=== PATIENT | female | born 1990 | race Caucasian/White ===

== ENCOUNTER → 2017-09-28 | Outpatient (CLI) | payer BC | END | disposition home or self-care (01) | LOC: LABWHC1 17:12 | PROVIDERS: ATTEND Otolaryngology | DX: E07.9 Disorder of thyroid, unspecified (principal) | CPT/HCPCS: 36415; 84439; 84443; 86376 ==

== ENCOUNTER → 2019-01-25 | Outpatient (CLI) | payer OTHER ==
[2019-01-25 14:42] LABS: HCT 40.7 % (34.0-46.0); HGB 13.2 gm/dL (11.4-16.0); MCH 28.4 pg (25.0-35.0); MCHC 32.4 g/dL (31.0-37.0); MCV 87.6 fL (80.0-100.0); Mean Platelet Volume 8.1; Platelet Count 211 k/uL (150-450); RBC 4.65 m/uL (3.80-5.40); RDW 13.6 % (11.5-15.5); WBC 8.9 k/uL (3.8-10.6)
--- NOTE | 2019-01-25 14:42 | US ---
EXAMINATION TYPE: Transabdominal DATE OF EXAM: 01/25/2019 2:06 PM COMPARISON: NONE CLINICAL HISTORY: Z36 CONFIRM DATES. Confirm Dates, pt has no complaints at this time EXAM PERFORMED: Transabdominal (TA) EXAM MEASUREMENTS: GESTATIONAL AGE / DATING Physician Established: (11 weeks/5 days) EDC: 08/11/2019 Dates by LMP: Unknown Dates by First Scan: No Prior Dates by Current Scan for: (12 weeks/2 days) EDC: 08/07/2019 MATERNAL ANATOMY Uterus: 14.3 x 7.2 x 9.0 cm Right Ovary: 2.7 x 1.7 x 2.1 cm Left Ovary: 2.2 x 1.7 x 2.2 cm Post CDS / Adnexa: wnl Presence of free fluid: No Presence of corpus luteal cyst: Left Ovary= 1.4 x 1.3 x 1.5 cm Presence of subchorionic bleed: No GESTATION / SURVEY CRL: 5.7 cm (12 weeks/2 days) MSD: wnl Heart Rate: 172 bpm Rhythm: Normal IUP: Viable IUP Nuchal Translucency 10-14wks (normal less than 3mm): 2mm Single, Live IUP/ No abnormality visualized at this time IMPRESSION: Single live intrauterine with a sonographic age of 12 weeks and 2 days and estimated date o f delivery of 08/07/2019, concordant with the physician established dates.
[2019-01-25 14:55] LABS: Glucose 116 mg/dL (74-99)
[2019-01-25 20:49] LABS: HIV 1 AB Non-Reactive (Non-Reactive); HIV AB P24 Non-Reactive (Non-Reactive); HIV P24 AG Non-Reactive (Non-Reactive)
== END | disposition home or self-care (01) ==
LOC: RADUSWWP 13:43
PROVIDERS: ATTEND Obstetrics & Gynecology
DX: Z36.89 Encounter for other specified antenatal screening (principal)
CPT/HCPCS: 76801; 76813; 82565; 82947; 85027; 86762; 86780; 86850; 86900; 86901; 87340; 87390

== ENCOUNTER → 2019-05-10 | Outpatient (CLI) | payer OTHER ==
[2019-05-10 11:58] LABS: Glucose 3 Hour, Gest 62 mg/dL
== END | disposition home or self-care (01) ==
LOC: LABWHC1 07:52
PROVIDERS: ATTEND Obstetrics & Gynecology
DX: O99.810 Abnormal glucose complicating pregnancy (principal)
CPT/HCPCS: 36415; 82951; 82952

== ENCOUNTER 2019-07-05 11:12 | Outpatient (CLI) | payer OTHER ==
[2019-07-05 12:01] LABS: Basophils % (A) 0 %; Eosinophils # (A) 0.1 k/uL (0-0.7); Eosinophils % (A) 1 %; HGB 12.8 gm/dL (11.4-16.0); Lymphocytes # (A) 2.1 k/uL (1.0-4.8); Lymphocytes % (A) 15 %; MCH 28.9 pg (25.0-35.0); MCHC 32.8 g/dL (31.0-37.0); Mean Platelet Volume 7.9; Monocytes # (A) 0.6 k/uL (0-1.0); Monocytes % (A) 4 %; Neutrophils # (A) 10.8 k/uL (1.3-7.7); Neutrophils % (A) 78 %; Platelet Count 268 k/uL (150-450); RBC 4.43 m/uL (3.80-5.40); RDW 14.6 % (11.5-15.5); WBC 13.7 k/uL (3.8-10.6)
[2019-07-05 12:09] LABS: Appearance,Urine Clear (Clear); Bacteria,Urine Many /hpf; Bilirubin,Urine Negative (Negative); Blood,Urine Small (Negative); Color,Urine Light Yellow; Glucose,Urine (UA) Negative (Negative); Ketones,Urine Negative (Negative); Leukocyte Esterase,Urine Negative (Negative); Mucus,Urine Rare /hpf; Nitrite,Urine Negative (Negative); PH, Urine 6.5 (5.0-8.0); Protein,Urine Negative (Negative); RBC,Urine 3 /hpf (0-5); Specific Gravity,Urine 1.004 (1.001-1.035); Squamous Epithelial Cell,Urine <1 /hpf (0-4); Urobilinogen,Urine <2.0 mg/dL (<2.0); WBC,Urine 2 /hpf (0-5)
[2019-07-05 12:18] LABS: ALT 17 U/L (9-52); AST 17 U/L (14-36); African American GFR (CKD) >90 (>60 ml/min/1.73 sqM); Blood Urea Nitrogen 5 mg/dL (7-17); LDH 369 U/L (313-618); Uric Acid 6.4 mg/dL (3.7-7.4)
[2019-07-05 14:01] VITALS: BP 125/87; PULSE 70; RESP 14; TEMP 93.7
--- NOTE | 2019-07-05 19:51 | P.MSEPDOC ---
Presenting Problems - Arrival Data Date of Arrival on Unit: 07/05/19 Time of Arrival on Unit: 11:13 Mode of Transport: Ambulatory - Complaint OB-Reason for Admission/Chief Complaint: PIH Comment: pih work up. sent from office Medical History - Information : 1 Para: 0 Term: 0 : 0 Abortions: Spontaneous or Elective: 0 Number of Living Children: 0 - Gestational Age Gestational Age by KARUNA (wks/days): 34 Weeks and 5 Days - History Complications: Chronic HTN Review of Systems - Review of Systems Constitutional: No problems Breast: No problems ENT: No problems Cardiovascular: No problems Respiratory: No problems Gastrointestinal: No problems Genitourinary: No problems Musculoskeletal: No problems Neurological: No problems Skin: No problems Vital Signs - Temperature Temperature: 93.7 F Temperature Source: Temporal Artery Scan - Pulse Right Brachial Pulse Rate: 70 Pulse Assessment Method: Automatic Cuff - Respirations Respiratory Rate: 14 Oxygen Delivery Method: Room Air - Blood Pressure Right Arm Blood Pressure: 125/87 Blood Pressure Mean: 99 Blood Pressure Source: Automatic Cuff Medical Screen Scoring (Pre) - Cervical Exam Dilation: Exam Deferred - Uterine Contractions Frequency: N/A - Maternal Vital Signs Maternal Temperature: N/A Signs of Preeclampsia: N/A Maternal Respirations: N/A - Maternal Trauma Maternal Trauma: N/A - Assessment - Baby A Baseline FHR: 145 Heart Rate - NICHD Category: Category I (Normal) = 0 - Total Score - Baby A Total Score - Baby A: 0 - Total Score - Baby B Total Score - Baby B: 0 - Total Score - Baby C Total Score - Baby C: 0 - Level of Risk - Baby A Level of Risk - Baby A: Low (0-5) - Level of Risk - Baby B Level of Risk - Baby B: Low (0-5) - Level of Risk - Baby C Level of Risk - Baby C: Low (0-5) Physician Notification (Pre) - Physician Notified Physician Notified Date: 07/05/19 Physician Notified Time: 11:13 Physician/Practitioner Notifed:: trveor Spoke With: trevor New Order Received: Yes - Notification Comment Comment: sent from office for pih workup. trevor contacted [facility] for consults, pt will be monitored weekly with nst, blood work and bps, pt may be sent home, follow up on thursday in office Disposition - Disposition OB Disposition: Discharge to home Discharge Date: 07/05/19 Discharge Time: 13:28 I agree with the RN Medical Screening Exam: Yes Risk & Benefit of care provided described in d/c instruction: Yes Diagnosis: GESTATIONAL HTN W/O SIGNIFICANT PROTEINURIA, THIRD TRIMESTER (Patient's blood pressures were mildly elevated in the office and therefore was sent to labor and delivery for evaluation of preeclampsia. Blood pressures here completely normal and lab work was fine except for elevation of her protein to creatinine ratio 0.54. heart tones are reactive. I did contact Dr. Camarena with maternal- medicine and he recommended to continue to watch her closely as an outpatient and repeat her blood work in 1 week. She'll return to my office on Thursday for another nonstress test and blood pressure check. We did discuss in detail the signs and symptoms of preeclampsia and indications to recur. Dr. Sosa did recommend delivery at 37 weeks which we already planned on doing. Patient is therefore discharged home follow up with me on Thursday)
== END 2019-07-05 13:28 | disposition home or self-care (01) ==
LOC: FBPOP 11:12
PROVIDERS: ATTEND Obstetrics & Gynecology
DX: O13.3 Gestational [pregnancy-induced] hypertension without significant proteinuria, third trimester (principal); Z3A.34 34 weeks gestation of pregnancy
CPT/HCPCS: 59025; 82570; 84156; 82565; 83615; 84450; 84460; 84520; 84550; 85025; 81001; G0463; 99215

== ENCOUNTER 2019-07-13 22:05 | Outpatient (CLI) | payer OTHER ==
[2019-07-13 22:39] LABS: Appearance,Urine Clear (Clear); Bacteria,Urine Few /hpf; Bilirubin,Urine Negative (Negative); Blood,Urine Small (Negative); Color,Urine Light Yellow; Glucose,Urine (UA) Negative (Negative); Ketones,Urine Negative (Negative); Leukocyte Esterase,Urine Negative (Negative); Mucus,Urine Rare /hpf; Nitrite,Urine Negative (Negative); Protein,Urine Negative (Negative); RBC,Urine 26 /hpf (0-5); Specific Gravity,Urine 1.012 (1.001-1.035); Squamous Epithelial Cell,Urine <1 /hpf (0-4); Urobilinogen,Urine <2.0 mg/dL (<2.0); WBC,Urine 1 /hpf (0-5)
[2019-07-13 23:59] VITALS: BP 141/84; PULSE 101; RESP 16; TEMP 97.8
--- NOTE | 2019-07-14 06:32 | P.MSEPDOC ---
Presenting Problems - Arrival Data Date of Arrival on Unit: 07/13/19 Time of Arrival on Unit: 22:07 Mode of Transport: Wheelchair - Complaint OB-Reason for Admission/Chief Complaint: Headache Medical History - Information : 1 Para: 0 Term: 0 : 0 Abortions: Spontaneous or Elective: 0 Number of Living Children: 0 - Gestational Age Gestational Age by KARUNA (wks/days): 35 Weeks and 6 Days Review of Systems - Review of Systems Constitutional: No problems Breast: No problems ENT: No problems Cardiovascular: No problems Respiratory: No problems Gastrointestinal: No problems Genitourinary: No problems Musculoskeletal: No problems Neurological: No problems Skin: No problems Vital Signs - Temperature Temperature: 97.8 F Temperature Source: Temporal Artery Scan - Pulse Right Sitting Pulse Rate: 101 Pulse Assessment Method: Automatic Cuff - Respirations Respiratory Rate: 16 Oxygen Delivery Method: Room Air - Blood Pressure Right Arm Sitting Blood Pressure: 141/84 Blood Pressure Mean: 103 Blood Pressure Source: Automatic Cuff Medical Screen Scoring (Pre) - Cervical Exam Dilation: Exam Deferred Membranes: Intact - Uterine Contractions Frequency: > 5 minutes apart = 1 Intensity: N/A - Maternal Vital Signs Maternal Temperature: N/A Maternal Blood Pressure: N/A Signs of Preeclampsia: N/A Maternal Respirations: N/A - Maternal Trauma Maternal Trauma: N/A - Assessment - Baby A Baseline FHR: 135 Heart Rate - NICHD Category: Category I (Normal) = 0 NST: Reactive - Total Score - Baby A Total Score - Baby A: 1 - Total Score - Baby B Total Score - Baby B: 1 - Total Score - Baby C Total Score - Baby C: 1 - Level of Risk - Baby A Level of Risk - Baby A: Low (0-5) - Level of Risk - Baby B Level of Risk - Baby B: Low (0-5) - Level of Risk - Baby C Level of Risk - Baby C: Low (0-5) Physician Notification (Pre) - Physician Notified Physician Notified Date: 07/13/19 Physician Notified Time: 23:02 Physician/Practitioner Notifed:: Meseret Adkins Order Received: Yes (d/c home. followup Thursday in office) Disposition - Disposition OB Disposition: Discharge to home, Written follow up instructions reviewed Discharge Date: 07/13/19 Discharge Time: 23:10 I agree with the RN Medical Screening Exam: Yes Risk & Benefit of care provided described in d/c instruction: Yes Diagnosis: GESTATIONAL HTN W/O SIGNIFICANT PROTEINURIA, THIRD TRIMESTER (Patient's been followed for gestational hypertension closely in the office. Blood work done approximately 3 days ago showed no evidence of preeclampsia. Patient called me this evening with various symptomatology and therefore was instructed come to labor and delivery for monitoring and blood pressure checks. Blood pressures remain the same without significant elevations. heart tones are reactive. I've already discussed this patient's clinical case with maternal medicine plan is delivery next week at 37 weeks with repeat blood work on Thursday. At this point there is no evidence of maternal compromise and therefore patient's felt to be stable for discharge home follow up with me on Thursday for repeat blood work blood pressure check and nonstress test. She is scheduled for delivery on . She is given strict instructions to return if she had any concerns or changes in her symptomatology.)
== END 2019-07-13 23:10 | disposition home or self-care (01) ==
LOC: FBPOP 22:05
PROVIDERS: ATTEND Obstetrics & Gynecology
DX: O13.3 Gestational [pregnancy-induced] hypertension without significant proteinuria, third trimester (principal); Z3A.35 35 weeks gestation of pregnancy
CPT/HCPCS: 59025; 81001; G0463; 99213

== ENCOUNTER 2019-07-21 05:50 | Inpatient (IN) | payer OTHER ==
[2019-07-20 11:37] VITALS: BMI 46.9
--- NOTE | 2019-07-20 12:54 | P.HPOB ---
History of Present Illness H&P Date: 07/20/19 Chief Complaint: Breech presentation, gestational hypertension This patient is a pleasant 29-year-old 1 para 0 female estimated date of confinement 08/11/2019 estimated gestational age 37 weeks who presents to labor and delivery for primary section due to persistent breech presentation and also with gestational hypertension. Patient's care is such that she saw me initially at 10 weeks and had elevated blood pressures 146/84 152/94. Patient was watched closely and did not require medication but throughout the remained having elevated blood pressures from time to time of 140s over 80s to 90s. I did consult with maternal- medicine and he recommended weekly preeclampsia labs which have been normal and delivery at 37 weeks. Since the patient has persistent breech did discuss options for delivery and she wishes to proceed with section for delivery. otherwise has been uncomplicated. Review of Systems Genitourinary: Reports Menstruation: Reports amenorrhea Past Medical History Past Medical History: Asthma Additional Past Medical History / Comment(s): Questionable chronic hypertension History of Any Multi-Drug Resistant Organisms: None Reported Past Surgical History: Adenoidectomy, Tonsillectomy Additional Past Surgical History / Comment(s): laparoscopy, D & C Past Anesthesia/Blood Transfusion Reactions: No Reported Reaction Past Psychological History: Depression Smoking Status: Never smoker Past Alcohol Use History: None Reported Past Drug Use History: None Reported - Past Family History Mother Family Medical History: Cancer Additional Family Medical History / Comment(s): lung Medications and Allergies Home Medications Medication Instructions Recorded Confirmed Type Pnv,Calcium 72/Iron/Folic Acid 1 tab PO DAILY 07/05/19 07/20/19 History [ Plus Tablet] Albuterol Inhaler [Ventolin Hfa 1 - 2 puff INHALATION RT-Q6H PRN 07/20/19 07/20/19 History Inhaler] Allergies Allergy/AdvReac Type Severity Reaction Status Date / Time cefaclor [[facility]] Allergy Unknown Verified 07/20/19 11:15 Penicillins Allergy Unknown Verified 07/20/19 11:15 Childhood codeine AdvReac Abdominal Verified 07/20/19 11:15 Pain Exam Intake and Output 07/19/19 07/20/19 07/20/19 22:59 06:59 14:59 Other: Weight 120.202 kg - OBG Physical Exam Abdomen: bowel sounds normal, no diffuse tenderness, no bruit present, no guarding noted, no hepatomegaly, no splenomegaly, no mass Vulva: both: normal Vagina: normal moisture, no discharge Cervix: no lesion (Cervix is closed in the office), no discharge Uterus: enlarged (Fundal height 40 cm) Results blood work shows she is A-, rubella immune, RPR nonreactive, hepatitis B negative, HIV is nonreactive, Glucola was abnormal with a normal three-hour gtt., group B strep was negative. Ultrasound on July 11 showed breech presentation proximally 7 pounds and weekly ultrasounds have confirmed persistent breech. Preeclampsia labs done this Thursday were normal. Patient received RhoGAM on May 20. Assessment and Plan Assessment: This is a pleasant 29-year-old 1 para 0 female 37-0/7 weeks gestation who is admitted to labor and delivery for delivery secondary to gestational hypertension and breech presentation. Plan is primary low transverse section. I've discussed this surgery and risks with the patient and risks of infection, bleeding, possible injury bowel, bladder, vessels, and/or other organs. All the patient's questions have been answered and a written consent is obtained. (1) 37 weeks gestation of Status: Acute Code(s): Z3A.37 - 37 WEEKS GESTATION OF SNOMED Code(s): 60826409 (2) Breech presentation of fetus Status: Acute Code(s): O32.1XX0 - MATERNAL CARE FOR BREECH PRESENTATION, UNSP SNOMED Code(s): 8639403 (3) Gestational hypertension Status: Acute Code(s): O13.9 - GESTATIONAL HTN W/O SIGNIFICANT PROTEINURIA, UNSP TRIMESTER SNOMED Code(s): 577175295
[2019-07-21] MEDS ORDERED: CITRIC ACID-SODIUM CITRATE 15 ML CUP PO ONE (06:06)
[2019-07-21] MEDS ORDERED: LACTATED RINGERS 1,000 ML IV ONE (06:06)
[2019-07-21] MEDS ORDERED: LACTATED RINGERS 1,000 ML IV SCH (06:06)
[2019-07-21 06:33] LABS: Basophils # (A) 0.1 k/uL (0-0.2); Basophils % (A) 1 %; Eosinophils # (A) 0.2 k/uL (0-0.7); Eosinophils % (A) 1 %; HCT 39.4 % (34.0-46.0); HGB 12.8 gm/dL (11.4-16.0); Lymphocytes # (A) 2.1 k/uL (1.0-4.8); Lymphocytes % (A) 15 %; MCH 28.8 pg (25.0-35.0); MCHC 32.4 g/dL (31.0-37.0); MCV 89.1 fL (80.0-100.0); Mean Platelet Volume 7.6; Monocytes # (A) 0.7 k/uL (0-1.0); Monocytes % (A) 5 %; Neutrophils # (A) 10.8 k/uL (1.3-7.7); Neutrophils % (A) 76 %; Platelet Count 243 k/uL (150-450); RBC 4.43 m/uL (3.80-5.40); RDW 13.9 % (11.5-15.5); WBC 14.2 k/uL (3.8-10.6)
[2019-07-21] MEDS ORDERED: CLINDAMYCIN 900 MG in DEXTROSE 5% IN WATER 50 ML IVPB ONE ×2 (07:15)
[2019-07-21] MEDS ORDERED: MORPHINE SULFATE (PF) 0.3 MG/0.3 ML SYR ONE (07:45)
[2019-07-21] MEDS ORDERED: ONDANSETRON 4 MG/2 ML VIAL ONE (07:45)
[2019-07-21] MEDS ORDERED: fentaNYL (PF) 50 MCG/ML 2 ML AMP ONE (07:45)
[2019-07-21] MEDS ORDERED: NALBUPHINE 10 MG/ML (1 ML AMP) ONE (07:45)
[2019-07-21] MEDS ORDERED: ePHEDrine SULFATE/0.9% NACL/PF 50 MG/5 ML SYRINGE IV ONE (07:45)
[2019-07-21] MEDS ORDERED: OXYTOCIN 10 UNIT/ML 1 ML VIAL ONE (07:45)
[2019-07-21] MEDS ORDERED: KETOROLAC 30 MG/ML 1 ML VIAL ONE (07:45)
[2019-07-21] MEDS ORDERED: NALOXONE 0.4 MG/ML 1 ML VIAL IV PRN ×2 (08:16→08:31)
[2019-07-21] MEDS ORDERED: NALBUPHINE 10 MG/ML (1 ML AMP) IV PRN (08:16)
[2019-07-21] MEDS ORDERED: HYDROmorphone 1 MG/ML 1 ML SYRINGE IVP PRN (08:16)
[2019-07-21] MEDS ORDERED: diphenhydrAMINE 50 MG/ML 1 ML VIAL IVP PRN (08:16)
--- NOTE | 2019-07-21 08:30 | P.OP ---
Date of Procedure: 07/21/19 Preoperative Diagnosis: #1: 37-0/7 week . #2: Breech presentation. #3: Gestational hypertension Postoperative Diagnosis: Same Procedure(s) Performed: Primary low transverse section Anesthesia: spinal Surgeon: Willian Carl Support Specialist #1: Carol Uribe Estimated Blood Loss (ml): 800 Pathology: other (Placenta) Condition: stable Disposition: floor Indications for Procedure: Please see dictated H&P for intimate details of this patient's admission. In brief summary this is a pleasant 29-year-old 1 para 0 female 37 weeks gestation with gestational hypertension known breech presentation. Patient's presenting for primary section. Patient understands this surgery and risks including risks of infection, bleeding, possible bowel, bladder, vessels, and/or other organs. Operative Findings: This is a vigorous viable male infant Apgars 9 and 9 delivery time is 0801 hrs. Infant was sacrum anterior jo breech presentation Description of Procedure: This patient is taken to the operating room where she sat up and spinal anesthetic is administered without incident. A Le catheter had already been placed to straight drain. With an adequate level of anesthesia she is laid in the supine position and has an abdominal prep and drape. Scalpels and taken a Pfannenstiel skin incision is then made. A second scalpel is taken down the fascia the fascia scored a knife. Fascial incision extended bilaterally using the Veras scissors. Fascia is then dissected off the rectus muscles. The rectus muscles are . The peritoneum was identified and entered sharply. Peritoneal incision extended superior and inferior without difficulty. Bladder blade is then placed. The bladder peritoneum was taken off the lower uterine segment. Scalpels and taken a low transverse uterine incision is then made. Using a hemostat I into the uterine cavity bluntly and there is loss of clear fluid. The is found to be in sacrum anterior jo breech presentation. Using the usual breech maneuvers the infant is delivered atraumatically through this incision. Mouth and nares are bulb suctioned. There is no evidence of a nuchal cord. The umbilical cord is doubly clamped and cut the infant is handed off to the nurses in attendance. Placenta is then manually extracted intact. Uterus is then externalized and uterine incision demarcated with Ovalle cla mps. Uterine incision is then demarcated and closed using 0 Vicryl running locked fashion 2 layers excellent hemostasis is noted. Bladder peritoneum was then reapproximated using a 3-0 Vicryl. Excess fluid is removed from the abdomen and pelvis. Uterus tubes and ovaries appear normal for term gestation. Parietal peritoneum was then closed using 0 Vicryl running fashion. Rectus muscles reapproximated using 0 Vicryl interrupted fashion. Fascial incision is then closed using PDS. Fascial incision is intact and hemostatic. Subcutaneous tissue is then closed using 3-0 Vicryl. Skin is and closed using sesar. All counts correct 3. There are no complications. Infant and mother stable in birthing room.
[2019-07-21] MEDS ORDERED: METOCLOPRAMIDE 5 MG/ML 2 ML VIAL IVP PRN (08:31)
[2019-07-21] MEDS ORDERED: Rhogam IMMUNE GLOBULIN 1,500 UNIT/1 ML IM ONE (08:31)
[2019-07-21] MEDS ORDERED: KETOROLAC 30 MG/ML 1 ML VIAL IVP PRN (08:31)
[2019-07-21] MEDS ORDERED: ONDANSETRON 4 MG/2 ML VIAL IVP PRN (08:31)
[2019-07-21] MEDS ORDERED: ZOLPIDEM 5 MG TAB PO PRN (08:31)
[2019-07-21] MEDS ORDERED: LANOLIN CREAM 5 GM TUBE TOPICAL PRN (08:31)
[2019-07-21] MEDS ORDERED: diphenhydrAMINE 25 MG CAP PO PRN (08:31)
[2019-07-21] MEDS ORDERED: OXYTOCIN 20 UNITS/1000 ML NS 1,000 ML IV SCH (08:31)
[2019-07-21] MEDS ORDERED: SIMETHICONE 80 MG CHEWABLE PO PRN (08:31)
[2019-07-21] MEDS ORDERED: ACETAMINOPHEN TAB 325 MG TAB PO PRN (08:31)
[2019-07-21] MEDS: LACTATED RINGERS 1,000 ML IV SCH ×2 (09:12→17:43)
[2019-07-21] MEDS: SENNOSIDES-DOCUSATE SODIUM 1 EACH TAB PO SCH ×2 (09:13→21:27)
[2019-07-21] MEDS: diphenhydrAMINE 50 MG/ML 1 ML VIAL IVP PRN ×2 (10:18→21:26)
[2019-07-22] MEDS: LACTATED RINGERS 1,000 ML IV SCH (00:27)
--- NOTE | 2019-07-22 06:40 | P.PNOBGPC ---
Subjective - Subjective Patient reports: Reports appetite normal, Reports voiding normally, Reports pain well controlled, Reports ambulating normally : doing well Objective - Vital Signs Latest vital signs: Vital Signs Temp Pulse Resp BP Pulse Ox 07/22/19 04:00 98.1 F 89 14 97/51 98 07/22/19 00:00 98.2 F 84 16 118/57 98 07/21/19 20:00 97.8 F 89 16 116/56 97 07/21/19 17:00 98 07/21/19 16:00 97.6 F 91 16 118/57 98 07/21/19 15:00 16 07/21/19 13:16 97 07/21/19 13:00 16 07/21/19 12:00 98.2 F 72 16 110/52 97 07/21/19 11:16 16 07/21/19 10:34 98.3 F 76 16 97 07/21/19 10:04 98.0 F 60 16 111/60 94 L 07/21/19 09:35 62 16 118/69 95 07/21/19 09:16 18 97 07/21/19 09:10 65 16 106/52 97 07/21/19 08:55 67 16 110/58 97 07/21/19 08:40 70 16 103/54 97 07/21/19 08:25 97.6 F 76 16 115/56 98 07/21/19 08:16 18 98 Intake and Output 07/21/19 07/21/19 07/22/19 14:59 22:59 06:59 Output Total 500 800 Balance -500 -800 Output: Urine 500 800 Other: # Voids 1 - Exam Lungs: bilateral: normal Chest: Normal S1, Normal S2 Extremities: Present: normal Abdomen: Present: normal appearance, soft. Absent: distention, tenderness Incision: Present: normal, dry, intact Uterus: Present: normal, firm Assessment and Plan Assessment: Post operative day #1. Patient is resting without complaints. Vital signs are stable and she is afebrile. Her incision is intact and dry. My impression this is a normal post operative course. Plan is to check a CBC, encourage ambulation, allow the patient to shower, and continue routine postoperative care. Most likely will go home tomorrow. (1) 37 weeks gestation of Current Visit: No Status: Acute Code(s): Z3A.37 - 37 WEEKS GESTATION OF SNOMED Code(s): 24549510 (2) Breech presentation of fetus Current Visit: No Status: Acute Code(s): O32.1XX0 - MATERNAL CARE FOR BREECH PRESENTATION, UNSP SNOMED Code(s): 6638965 (3) Gestational hypertension Current Visit: No Status: Acute Code(s): O13.9 - GESTATIONAL HTN W/O SIGNIFICANT PROTEINURIA, UNSP TRIMESTER SNOMED Code(s): 358283649
[2019-07-22 06:42] LABS: Basophils % (A) 0 %; Eosinophils # (A) 0.2 k/uL (0-0.7); Eosinophils % (A) 1 %; HCT 31.4 % (34.0-46.0); HGB 10.8 gm/dL (11.4-16.0); Lymphocytes # (A) 1.5 k/uL (1.0-4.8); Lymphocytes % (A) 11 %; MCH 30.3 pg (25.0-35.0); MCHC 34.4 g/dL (31.0-37.0); MCV 88.2 fL (80.0-100.0); Mean Platelet Volume 7.5; Monocytes # (A) 0.8 k/uL (0-1.0); Monocytes % (A) 6 %; Neutrophils # (A) 10.6 k/uL (1.3-7.7); Neutrophils % (A) 80 %; Platelet Count 202 k/uL (150-450); RBC 3.56 m/uL (3.80-5.40); RDW 13.9 % (11.5-15.5); WBC 13.4 k/uL (3.8-10.6)
--- NOTE | 2019-07-22 07:28 | P.PN ---
Progress Note - Text Progress Note Date: 07/22/19 post op day one status post C/S under spinal anesthesia, , intrathecal morphin given for post op analgesia , pateints doing well , there is no anesthesia related complications
[2019-07-22] MEDS: IBUPROFEN 600 MG TAB PO PRN ×3 (07:30→19:54)
[2019-07-22] MEDS: SENNOSIDES-DOCUSATE SODIUM 1 EACH TAB PO SCH ×2 (07:31→19:55)
[2019-07-22] MEDS: HYDROcodone/APAP 5-325MG 1 EACH TAB PO PRN ×3 (09:37→22:46)
[2019-07-22] MEDS ORDERED: VENLAFAXINE HCL 75 MG TAB PO STA (13:18)
[2019-07-23] MEDS: IBUPROFEN 600 MG TAB PO PRN ×3 (01:51→16:00)
[2019-07-23] MEDS: HYDROcodone/APAP 5-325MG 1 EACH TAB PO PRN ×3 (07:32→23:18)
[2019-07-23] MEDS: SENNOSIDES-DOCUSATE SODIUM 1 EACH TAB PO SCH ×2 (07:33→19:49)
[2019-07-23] MEDS ORDERED: VENLAFAXINE HCL 75 MG TAB PO SCH (09:00)
--- NOTE | 2019-07-23 09:25 | P.PNOBGPC ---
Subjective - Subjective Principal diagnosis: Status post primary low transverse postop day #2 Interval history: Patient seen and examined. She denies nausea, vomiting, chest pain, shortness of breath or calf pain. She is ambulating around the room. She requested to be started back on her Effexor yesterday and she did start that without incident. She is feeling a little bit overwhelmed and has no thoughts of hurting herself. We did have a brief conversation about how to care for yourself while caring for her infant. Patient reports: Reports appetite normal, Reports voiding normally, Reports pain well controlled, Reports ambulating normally [place]: doing well Objective - Vital Signs Latest vital signs: Vital Signs Temp Pulse Resp BP Pulse Ox 07/23/19 07:30 98.1 F 77 18 137/81 98 07/23/19 00:00 98.7 F 90 18 135/69 97 07/22/19 15:36 98.4 F 86 16 122/73 98 - Exam Lungs: bilateral: normal Chest: Normal S1, Normal S2 Extremities: Present: normal Abdomen: Present: normal appearance, soft. Absent: distention, tenderness Incision: Present: normal, dry, intact Uterus: Present: normal, firm Assessment and Plan (1) Status post primary low transverse section Current Visit: Yes Status: Acute Code(s): Z98.891 - HISTORY OF UTERINE SCAR FROM PREVIOUS SURGERY SNOMED Code(s): 511405350 Plan: 1. Increase ambulation 2. Continue pain control
[2019-07-24] MEDS: IBUPROFEN 600 MG TAB PO PRN ×2 (05:21→18:20)
[2019-07-24 08:15] VITALS: RESP 15; TEMP 98.2
[2019-07-24] MEDS ORDERED: VENLAFAXINE HCL ER 75 MG CAP PO SCH (09:15)
--- NOTE | 2019-07-24 09:18 | P.DS ---
Providers Date of admission: 07/21/19 05:50 Expected date of discharge: 07/24/19 Attending physician: Willian Carl Primary care physician: Stated None - Discharge Diagnosis(es) (1) Status post primary low transverse section Current Visit: Yes Status: Acute Hospital Course: Patient underwent primary low transverse . Her post operative course was uncomplicated. She was started on Holcomb and Motrin for pain control and Effexor XR for her history of depression. She denies nausea, vomiting, chest pain, shortness of breath or calf pain. Her incision is clean, dry, intact. She is ambulating voiding without difficulty, tolerating regular diet and passing flatus. She'll be discharged home postoperative day #3 in stable condition to follow-up with Dr. Carl in one week. Plan - Discharge Summary Discharge Rx Participant: Yes New Discharge Prescriptions: New Ibuprofen [Motrin] 600 mg PO Q6HR PRN #30 tab PRN Reason: Mild Pain Or Fever >= 100.5 HYDROcodone/APAP 5-325MG [Holcomb 5-325] 1 each PO Q4HR PRN #18 tab PRN Reason: Moderate Pain Venlafaxine HCl [Effexor] 75 mg PO ONCE #30 tab Venlafaxine HCl [Effexor XR] 75 mg PO DAILY #30 cap.er.24h No Action Pnv,Calcium 72/Iron/Folic Acid [ Plus Tablet] 1 tab PO DAILY Discharge Medication List Pnv,Calcium 72/Iron/Folic Acid [ Plus Tablet] 1 tab PO DAILY 07/05/19 [History] HYDROcodone/APAP 5-325MG [Holcomb 5-325] 1 each PO Q4HR PRN #18 tab 07/22/19 [Rx] Ibuprofen [Motrin] 600 mg PO Q6HR PRN #30 tab 07/22/19 [Rx] Venlafaxine HCl [Effexor] 75 mg PO ONCE #30 tab 07/22/19 [Rx] Venlafaxine HCl [Effexor XR] 75 mg PO DAILY #30 cap.er.24h 07/24/19 [Rx] Follow up Appointment(s)/Referral(s): Willian Carl MD [STAFF PHYSICIAN] - 08/02/19 1:30 pm (Patient also has a post appointment August 31 at 2 PM.) Patient Instructions/Handouts: (DC) Activity/Diet/Wound Care/Special Instructions: No heavy lifting or strenuous activity for 6 weeks. No driving. No intercourse or anything per vagina for 6 weeks. Please call if any fever, chills, excessive vaginal bleeding, and/or abdominal pain. Discharge Disposition: HOME SELF-CARE
[2019-07-24] MEDS: SENNOSIDES-DOCUSATE SODIUM 1 EACH TAB PO SCH (09:38)
[2019-07-24 15:56] VITALS: BP 133/82; PULSE 82
== END 2019-07-24 18:58 | disposition home or self-care (01) | DRG 788 ==
LOC: 4FBP 05:50
PROVIDERS: ADMIT Obstetrics & Gynecology; ATTEND Obstetrics & Gynecology
PROC: 10D00Z1 Extraction of Products of Conception, Low, Open Approach (ICD-10-PCS; principal; 2019-07-21 08:00)
DX: O13.4 Gestational [pregnancy-induced] hypertension without significant proteinuria, complicating childbirth (principal); O32.1XX0 Maternal care for breech presentation, not applicable or unspecified; O99.52 Diseases of the respiratory system complicating childbirth; J45.909 Unspecified asthma, uncomplicated; O99.344 Other mental disorders complicating childbirth; F32.9 Major depressive disorder, single episode, unspecified; Z37.0 Single live birth; Z3A.37 37 weeks gestation of pregnancy
CPT/HCPCS: 85025; 85461; 86850; 86900; 86901